=== PATIENT | female | born 1980 | race Caucasian/White ===

== ENCOUNTER 2017-10-20 02:14 | Emergency (ER) | payer OTHER ==
[2017-10-20 02:48] VITALS: BP 127/68; PULSE 72; TEMP 98.4; BMI 28.6
[2017-10-20] MEDS ORDERED: IBUPROFEN 600 MG TABLET (FP) PO ONE (03:30)
--- NOTE | 2017-10-20 03:31 | PDOC ---
History of Present Illness - General Chief Complaint: Head/Neck problem Stated Complaint: NECK PAIN,CHEST PAIN Time Seen by Provider: 10/20/17 02:28 History Source: Patient Past History - Past Medical History Allergies/Adverse Reactions: Allergies Allergy/AdvReac Type Severity Reaction Status Date / Time No Known Allergies Allergy Verified 10/20/17 02:46 Home Medications: Ambulatory Orders Cyclobenzaprine HCl [Flexeril -] 10 mg PO TID PRN #10 tablet 02/20/16 Sertraline HCl 25 mg PO DAILY 02/20/16 Asthma: No Cancer: No Cardiac Disorders: No Diabetes: No HTN: No Hypercholesterolemia: Yes Seizures: No Thyroid Disease: No - Immunization History Immunization Up to Date: Yes - Suicide/Smoking/Psychosocial Hx Smoking History: Never smoked Have you smoked in the past 12 months: No Information on smoking cessation initiated: No Hx Alcohol Use: No Drug/Substance Use Hx: No Substance Use Type: None Hx Substance Use Treatment: No *Physical Exam - Vital Signs Last Vital Signs Temp Pulse Resp BP Pulse Ox 98.4 F 72 19 127/68 98 10/20/17 02:41 10/20/17 02:41 10/20/17 02:41 10/20/17 02:41 10/20/17 02:41 *DC/Admit/Observation/Transfer Diagnosis at time of Disposition: Sternomastoid muscle strain Qualifiers: Encounter type: initial encounter Qualified Code(s): S16.1XXA - Strain of muscle, fascia and tendon at neck level, initial encounter - Discharge Dispostion Condition at time of disposition: Fair Decision to Admit order: No - Referrals Referrals: Brie Abebe MD [Primary Care Provider] - - Patient Instructions Printed Discharge Instructions: DI for Cervical Muscle Strain Additional Instructions: Rest, Motrin every 6 hours as needed for pain Follow-up with the orthopedic surgeon listed on your discharge Return back to the ER for severe/persistent or worsening symptoms - Post Discharge Activity
== END 2017-10-20 04:00 | disposition home or self-care (01) ==
LOC: JER 02:14
DX: S16.1XXA Strain of muscle, fascia and tendon at neck level, initial encounter (principal); X58.XXXA Exposure to other specified factors, initial encounter; Y93.89 Activity, other specified; Y92.9 Unspecified place or not applicable; E78.00 Pure hypercholesterolemia, unspecified
CPT/HCPCS: 99281-25

== ENCOUNTER 2018-04-13 10:46 | Emergency (ER) | payer OTHER ==
[2018-04-13 10:51] VITALS: TEMP 97.7; BMI 29.1
--- NOTE | 2018-04-13 11:26 | PDOC ---
History of Present Illness - General Chief Complaint: Back Pain Stated Complaint: LOWER BACK PAIN Time Seen by Provider: 04/13/18 11:25 - History of Present Illness Initial Comments: 04/13/18 11:33 Ms. Pinto is a 37 yo female w/ no significant pmh who presents for evaluation of 1 month history of worsening back pain. Patient reports it has been bilateral in her lower back and that over the past week she has had additional left lower quadrant abdominal pain. Patient reports pain is constant and exacerbated by flexing her legs, has tried over the counter motrin as well as chiropractic and massage treatment with no relief. Was scheduled outpatient for an abdominal US however was unable to perform it due to insurance reasons. The patient denies chest pain, shortness of breath, headache and dizziness. Denies fever, chills, nausea, vomit, diarrhea and constipation. Denies dysuria, frequency, urgency and hematuria. Past History - Past Medical History Allergies/Adverse Reactions: Allergies Allergy/AdvReac Type Severity Reaction Status Date / Time No Known Allergies Allergy Verified 04/13/18 10:51 Home Medications: Ambulatory Orders Cyclobenzaprine HCl [Flexeril -] 10 mg PO TID PRN #10 tablet 02/20/16 Sertraline HCl 25 mg PO DAILY 02/20/16 Asthma: No Cancer: No Cardiac Disorders: No COPD: No Diabetes: No HTN: No Hypercholesterolemia: Yes Seizures: No Thyroid Disease: No - Immunization History Immunization Up to Date: Yes - Suicide/Smoking/Psychosocial Hx Smoking History: Never smoked Have you smoked in the past 12 months: No Hx Alcohol Use: No Drug/Substance Use Hx: No Substance Use Type: None Hx Substance Use Treatment: No Review of Systems - Review of Systems Comments:: 04/13/18 11:42 GENERAL/CONSTITUTIONAL: No fever or chills. No weakness. HEAD, EYES, EARS, NOSE AND THROAT: No change in vision. No ear pain or discharge. No sore throat. CARDIOVASCULAR: No chest pain or shortness of breath RESPIRATORY: No cough, wheezing, or hemoptysis. GASTROINTESTINAL: +DARINEL lower back pain w/ LLQ abdominal pain. Constant, non- radiating. No nausea, vomiting, diarrhea or constipation. GENITOURINARY: No dysuria, frequency, or change in urination. MUSCULOSKELETAL: No joint or muscle swelling or pain. No neck or back pain. SKIN: No rash NEUROLOGIC: No headache, vertigo, loss of consciousness, or change in strength/ sensation. ENDOCRINE: No increased thirst. No abnormal weight change HEMATOLOGIC/LYMPHATIC: No anemia, easy bleeding, or history of blood clots. ALLERGIC/IMMUNOLOGIC: No hives or skin allergy. *Physical Exam - Vital Signs Last Vital Signs Temp Pulse Resp BP Pulse Ox 97.7 F 101 H 20 119/81 99 04/13/18 10:46 04/13/18 10:46 04/13/18 10:46 04/13/18 10:46 04/13/18 10:46 - Physical Exam Comments: 04/13/18 11:43 GENERAL: Awake, alert, and fully oriented, in no acute distress HEAD: No signs of trauma, normocephalic, atraumatic EYES: PERRLA, EOMI, sclera anicteric, conjunctiva clear ENT: Auricles normal inspection, hearing grossly normal, nares patent, oropharynx clear without exudates. Moist mucosa NECK: Normal ROM, supple, no lymphadenopathy, JVD, or masses LUNGS: No distress, speaks full sentences, clear to auscultation bilaterally HEART: Regular rate and rhythm, normal S1 and S2, no murmurs, rubs or gallops, peripheral pulses normal and equal bilaterally. ABDOMEN: +LLQ TTP. No spinal TTP. Minor DARINEL lower back tenderness. Soft, normoactive bowel sounds. No guarding, no rebound. No masses EXTREMITIES: Normal inspection, Normal range of motion, no edema. No clubbing or cyanosis. NEUROLOGICAL: Cranial nerves II through XII grossly intact. Normal speech, normal gait, no focal sensorimotor deficits SKIN: Warm, Dry, normal turgor, no rashes or lesions noted. Moderate Sedation - Procedure Monitoring Vital Signs: Procedure Monitoring Vital Signs Temperature 97.7 F 04/13/18 10:46 Pulse Rate 101 H 04/13/18 10:46 Respiratory Rate 20 04/13/18 10:46 Blood Pressure 119/81 04/13/18 10:46 O2 Sat by Pulse Oximetry (%) 99 04/13/18 10:46 ED Treatment Course - LABORATORY CBC & Chemistry Diagram: 04/13/18 12:11 04/13/18 12:11 Medical Decision Making - Medical Decision Making 04/13/18 15:26 Ms. Pinto is a 37 yo female w/ pmh as described who presents for evaluation of 1 month history of chronic non-specific back pain w/ abdominal complication. Patient evaluated with labs as below and CT abdomen/pelvis. Labs grossly wnl. CT abdomen/pelvis negative for acute pathology. No concern for acute process at this time. Discharging to home. Laboratory Results - last 24 hr 04/13/18 04/13/18 04/13/18 12:11 12:11 12:11 WBC 7.1 RBC 4.76 Hgb 14.2 Hct 41.3 MCV 86.8 MCH 29.7 MCHC 34.3 RDW 13.3 D Plt Count 289 MPV 8.4 Absolute Neuts (auto) 3.9 Neutrophils % 55.8 Lymphocytes % 35.1 D Monocytes % 7.9 Eosinophils % 0.6 Basophils % 0.6 Nucleated RBC % 0 Sodium 138 Potassium 4.1 Chloride 105 Carbon Dioxide 26 Anion Gap 6 L BUN 17 Creatinine 0.7 Creat Clearance w eGFR > 60 Random Glucose 92 Calcium 9.0 Total Bilirubin 0.7 AST 19 ALT 32 Alkaline Phosphatase 80 Total Protein 8.0 Albumin 4.2 Urine Color Ltyellow Urine Appearance Clear Urine pH 6.0 Ur Specific [place] 1.011 Urine Protein Negative Urine Glucose (UA) Negative Urine Ketones Negative Urine Blood Negative Urine Nitrite Negative Urine Bilirubin Negative Urine Urobilinogen Negative Ur Leukocyte Esterase Trace Urine WBC (Auto) 7 Urine RBC (Auto) 2 Ur Epithelial Cells Rare Urine Mucus Rare Urine HCG, Qual Negative *DC/Admit/Observation/Transfer Diagnosis at time of Disposition: Abdominal pain Qualifiers: Abdominal location: unspecified location Qualified Code(s): R10.9 - Unspecified abdominal pain - Discharge Dispostion Disposition: HOME - Referrals Referrals: Thomas Thompson MD [Primary Care Provider] - - Patient Instructions Printed Discharge Instructions: DI for Abdominal Pain-Adult, DI for Low Back Pain Additional Instructions: You were evaluated today in the ER for your abdominal pain. We performed laboratory evaluation as well as performed a CT abdomen and pelvis. No concerning findings were found at this time. You may take over the counter motrin or tylenol per package instructions for pain control. Follow-up with primary care provider later this week for further evaluation. Return to ER if any fever, chills, increase in pain, or other concerning symptoms. - Post Discharge Activity
--- NOTE | 2018-04-13 11:30 | PDOC ---
Attending Attestation - HPI HPI: 04/13/18 11:40 The patient is a 37 year old female with no significant PMH who presents to the emergency department with worsening bilateral lower back pain and left lower quadrant pain for the past week. Patient states she tried motrin at home, has massages and went to a chiropractor with no relief of her lower back pain. Patient states she had her left lower quadrant pain evaluated by her PCP and was told to get an outpatient abdominal ultrasound, but did not have it done because it was not covered by her insurance. Last menstrual cycle was in January. The patient denies chest pain, shortness of breath, headache and dizziness. Denies fever, chills, nausea, vomit, diarrhea and constipation. Denies dysuria, frequency, urgency and hematuria. Allergies: NKA Past surgical history: None reported. Social history: No reported alcohol, drug or cigarette use. PCP: Dr. Thompson - Physicial Exam PE: 04/13/18 11:49 ADULT PHYSICAL EXAM Constitutional: Awake, alert, oriented. No acute distress. Cardiovascular: Regular rate. Regular rhythm. S1, S2 regular. Distal pulses are 2+ and symmetric. Pulmonary/Chest: No evidence of respiratory distress. Clear to auscultation bilaterally No wheezing, rales or rhonchi. Abdominal: Soft and non-distended. (+) Left lower quadrant tenderness. No rebound, guarding or rigidity. No organomegaly. No palpable masses. Good bowel sounds. Back: No CVA tenderness. No C,T, or L tenderness. (+) Left pelvic tenderness. Musculoskeletal: No edema. No cyanosis. No clubbing. Full range of motion in all extremities. Nocalf tenderness. Radial/pedal pulses are intact and 2+ bilaterally Skin: Skin is warm and dry. No petechiae. No purpura. Neurological: Alert and oriented to person, place, and time. Cranial nerves II -XII are grossly intact. Psychiatric: Good eye contact. Normal interaction, affect and behavior. <Michelle Mary - Last Filed: 04/13/18 12:15> - Resident Resident Name: Onesimo Thorne - ED Attending Attestation I have performed the following: I have examined & evaluated the patient, The case was reviewed & discussed with the resident, I agree w/resident's findings & plan, Exceptions are as noted - Medical Decision Making 04/13/18 11:30 I, Dr. Elena Davis, DO, attest that this document has been prepared under my direction and personally reviewed by me in its entirety. I further attest, that it accurately reflects all work, treatment, procedures and medical decision -making performed by me. 04/13/18 12:11 a/p: 37yo female with low back pain x weeks now with LLQ pain -last menstrual cycle January -concern for preg (though hx of tubal ligation) vs lumbar sprain/strain vs lbp vs pelvic mass vs cyst -will send labs, ua, ucg -will obtain ct abd/pelvis without contrast if upreg negative -tylenol for pain -will monitor and reassess 04/13/18 15:39 ct does not show acute intraabd pathology or bony pathology pt feeling better needs to follow up with her PMD as an outpt stable for dc to home <Elena Davis - Last Filed: 04/13/18 15:40>
[2018-04-13] MEDS ORDERED: SODIUM CHLORIDE 1,000 ML IV STA (11:44)
[2018-04-13] MEDS ORDERED: ACETAMINOPHEN 1000 MG/100 ML VIAL (NON FORMULARY) IVPB ONE (12:19)
[2018-04-13] MEDS ORDERED: ACETAMINOPHEN INJECTION 100 ML IVPB ONE (12:21)
[2018-04-13 12:36] LABS: BASO % 0.6 % (0-2.0); EOS % 0.6 % (0-4.5); HEMATOCRIT 41.3 % (32.4-45.2); HEMOGLOBIN 14.2 GM/dL (10.7-15.3); LYMPH % 35.1 % (8-40); MCH 29.7 pg (25.7-33.7); MCHC 34.3 g/dl (32.0-36.0); MEAN CELL VOLUME 86.8 fl (80-96); MEAN PLT VOLUME 8.4 fl (7.5-11.1); MONO % 7.9 % (3.8-10.2); NEUT % 55.8 % (42.8-82.8); PLATELET COUNT 289 K/MM3 (134-434); RBC 4.76 M/mm3 (3.60-5.2); RDW 13.3 % (11.6-15.6); WHITE BLOOD COUNT 7.1 K/mm3 (4.0-10.0)
[2018-04-13 12:38] LABS: HCG,QUALITATIVE URINE Negative
[2018-04-13 12:41] LABS: ALBUMIN 4.2 g/dl (3.4-5.0); ALK PHOS 80 U/L (45-117); ANION GAP 6 MMOL/L (8-16); BILIRUBIN,TOTAL 0.7 mg/dL (0.2-1); BLOOD UREA NITROGEN 17 mg/dL (7-18); CHLORIDE 105 mmol/L (98-107); CO2 26 mmol/L (21-32); CREATININE 0.7 mg/dL (0.55-1.3); GLUCOSE,RANDOM 92 mg/dL (74-106); POTASSIUM 4.1 mmol/L (3.5-5.1); SGOT/AST 19 U/L (15-37); SGPT/ALT 32 U/L (13-61); SODIUM 138 mmol/L (136-145)
[2018-04-13 12:43] LABS: URINE APPEARANCE CLEAR; URINE BILIRUBIN NEGATIVE (<2.0 mg/dL); URINE COLOR LTYELLOW; URINE GLUCOSE (UA) NEGATIVE (NEGATIVE); URINE KETONE NEGATIVE (NEGATIVE); URINE LEUK ESTERASE TRACE (NEGATIVE); URINE NITRITE NEGATIVE (NEGATIVE); URINE PROTEIN NEGATIVE (NEGATIVE); URINE UROBILINOGEN NEGATIVE mg/dL (0.2-1.0)
[2018-04-13 12:55] LABS: EPI CELLS RARE /HPF (FEW); URINE MUCUS RARE
[2018-04-13 15:52] VITALS: BP 116/69; PULSE 75
== END 2018-04-13 15:52 | disposition home or self-care (01) ==
LOC: JER 10:46
PROC: 3E033NZ Introduction of Analgesics, Hypnotics, Sedatives into Peripheral Vein, Percutaneous Approach (ICD-10-PCS; principal; 2018-04-13)
PROC: 3E0337Z Introduction of Electrolytic and Water Balance Substance into Peripheral Vein, Percutaneous Approach (ICD-10-PCS; 2018-04-13)
DX: R10.9 Unspecified abdominal pain (principal); E78.00 Pure hypercholesterolemia, unspecified
CPT/HCPCS: 36415; 74176-TC; 80053; 81003; 81015; 84703; 85025; 87086; 96361; 96374; 99281-25; J0131; J7030

== ENCOUNTER 2019-03-16 13:08 | Emergency (ER) | payer OTHER ==
--- NOTE | 2019-03-16 13:27 | PDOC ---
Rapid Medical Evaluation Medical Evaluation: Allergies Allergy/AdvReac Type Severity Reaction Status Date / Time No Known Allergies Allergy Verified 04/13/18 10:51 I have performed a brief in-person evaluation of this patient. The patient presents with a chief complaint of: this AM, felt eye burning sensation, then later with nausea, SOB and chest heaviness; denies smoking; denies URI sxs Pertinent physical exam findings: In NAD, lungs clear I have ordered the following: labs, ekg, cxr The patient will proceed to the ED for further evaluation. 03/16/19 13:23
[2019-03-16 13:28] VITALS: BP 142/68; PULSE 90; TEMP 98; BMI 22.4
[2019-03-16 15:28] LABS: BASO % 1.1 % (0-2.0); EOS % 0.5 % (0-4.5); HEMATOCRIT 38.3 % (32.4-45.2); HEMOGLOBIN 12.7 GM/dL (10.7-15.3); LYMPH % 29.2 % (8-40); MCH 29.1 pg (25.7-33.7); MCHC 33.2 g/dl (32.0-36.0); MEAN CELL VOLUME 87.9 fl (80-96); MEAN PLT VOLUME 7.8 fl (7.5-11.1); MONO % 4.6 % (3.8-10.2); NEUT % 64.6 % (42.8-82.8); PLATELET COUNT 282 K/MM3 (134-434); RBC 4.35 M/mm3 (3.60-5.2); RDW 13.3 % (11.6-15.6)
--- NOTE | 2019-03-16 15:30 | PDOC ---
History of Present Illness - General Chief Complaint: Headache Stated Complaint: HEADACHE/CONGESTED/DIZZNESS Time Seen by Provider: 03/16/19 13:22 History Source: Patient Exam Limitations: No Limitations Past History - Travel Traveled outside of the country in the last 30 days: No Close contact w/someone who was outside of country & ill: No - Past Medical History Allergies/Adverse Reactions: Allergies Allergy/AdvReac Type Severity Reaction Status Date / Time No Known Allergies Allergy Verified 03/16/19 13:28 Home Medications: Ambulatory Orders Cyclobenzaprine HCl [Flexeril -] 10 mg PO TID PRN #10 tablet 02/20/16 Sertraline HCl 25 mg PO DAILY 02/20/16 Ibuprofen 600 mg PO Q6H #30 tablet 03/16/19 Asthma: No Cancer: No Cardiac Disorders: No COPD: No Diabetes: No HTN: No Hypercholesterolemia: Yes Seizures: No Thyroid Disease: No - Immunization History Immunization Up to Date: Yes - Psycho Social/Smoking Cessation Hx Smoking History: Never smoked Have you smoked in the past 12 months: No Hx Alcohol Use: Yes Drug/Substance Use Hx: No Substance Use Type: None Hx Substance Use Treatment: No Review of Systems - Review of Systems Able to Perform ROS?: Yes Comments:: 03/16/19 17:03 CONSTITUTIONAL: Absent: fever, chills, diaphoresis, generalized weakness, malaise, loss of appetite HEENT: Absent: rhinorrhea, nasal congestion, throat pain, throat swelling, difficulty swallowing, mouth swelling, ear pain, eye pain, visual Changes CARDIOVASCULAR: Present: Chest pressure absent: loss of consciousness, palpitations, irregular heart rate, peripheral edema RESPIRATORY: Absent: cough, shortness of breath, dyspnea with exertion, orthopnea, wheezing, stridor, hemoptysis MUSCULOSKELETAL: Absent: myalgia, arthralgia, joint swelling SKIN: Absent: rash, itching, pallor NEUROLOGIC: Present: Headache absent: focal weakness or paresthesias, dizziness, unsteady gait, seizure, mental status changes, bladder or bowel incontinence PSYCHIATRIC: Absent: anxiety, depression, suicidal or homicidal ideation, hallucinations. Is the patient limited Kinyarwanda proficient: No *Physical Exam - Vital Signs Last Vital Signs Temp Pulse Resp BP Pulse Ox 98.0 F 90 16 142/68 100 03/16/19 13:23 03/16/19 13:23 03/16/19 13:23 03/16/19 13:23 03/16/19 13:23 - Physical Exam 03/16/19 17:03 GENERAL: Well developed, well nourished. Awake and alert. No acute distress. HEENT: Normocephalic, atraumatic. PERRLA, EOMI. No conjunctival pallor. Sclera are non- icteric. Moist mucous membranes. Oropharynx is clear. NECK: Supple. Full ROM. No lymphadenopathy. CARDIOVASCULAR: Regular rate and rhythm. No murmurs, rubs, or gallops. Distal pulses are 2+ and symmetric. PULMONARY: No evidence of respiratory distress. Lungs clear to auscultation bilaterally. No wheezing, rales or rhonchi. ABDOMINAL: Soft. Non-tender. Non-distended. No rebound or guarding. No organomegaly. Normoactive bowel sounds. MUSCULOSKELETAL Normal range of motion at all joints. No bony deformities or tenderness. No CVA tenderness. EXTREMITIES: No cyanosis. No clubbing. No edema. No calf tenderness. SKIN: Warm and dry. Normal capillary refill. No rashes. No jaundice. NEUROLOGICAL: Alert, awake, appropriate. Cranial nerves 2-12 intact. No deficits to light touch and temperature in face, upper extremities and lower extremities. No motor deficits in the in face, upper extremities and lower extremities. Normoreflexic in the upper and lower extremities. Normal speech. Toes are down- going bilaterally. Gait is normal without ataxia. PSYCHIATRIC: Cooperative. Good eye contact. Appropriate mood and affect. ED Treatment Course - LABORATORY CBC & Chemistry Diagram: 03/16/19 15:13 03/16/19 15:13 Medical Decision Making - Medical Decision Making 03/16/19 17:05 Patient is a 38-year-old female with past medical history of hyper lipidemia, presents to the ER with headache and chest pressure starting at 11 AM this morning. She states that the pain is behind her eyes. She also admits that she has some chest pressure which started at 11 AM. It hurts more when she takes a deep breath. She also states she felt febrile yesterday. Denies visual changes, lightheadedness, dizziness, palpitations, nausea, vomiting or diarrhea. A/P: Migraine On exam patient is neurologically intact with no focal deficits. Reproducible chest pain with sternal pressure. EKG: Rate 80 bpm, normal sinus rhythm. Normal intervals and axis. No acute ST- T wave changes. Troponin negative Lab work unremarkable, flu negative. Migraine cocktail given with relief of symptoms. Likely a sinus migraine variant Discharge home with primary care follow-up I discussed the physical exam findings, ancillary test results and final diagnoses with the patient. I answered all of the patient's questions. The patient was satisfied with the care received and felt comfortable with the discharge plan and treatment plan. The Patient agrees to follow up with the primary care physician/specialist within 24-72 hours. Return precautions were given. Discharge - Discharge Information Problems reviewed: Yes Clinical Impression/Diagnosis: Headache Qualifiers: Headache type: unspecified Headache chronicity pattern: acute headache Intractability: not intractable Qualified Code(s): R51 - Headache Condition: Stable Disposition: HOME - Admission No - Follow up/Referral Referrals: Thomas Thompson MD [Primary Care Provider] - - Patient Discharge Instructions Patient Printed Discharge Instructions: DI for Migraine Additional Instructions: You were evaluated for your headache and chest pain today. Your EKG and blood work was normal. Your headache was relieved with medications for migraines. Please follow-up with your primary care doctor for further management of your symptoms. Please take Motrin 600 mg every 6 hours as needed for pain. Return to the ER for worsening headache, worsening chest pain, difficulty breathing or if you have any changes in your symptoms. - Post Discharge Activity Work/Back to School Note: Back to Work
[2019-03-16] MEDS ORDERED: METOCLOPRAMIDE HCL INJECTION 10 MG/2 ML VIAL IVPB ONE (15:31)
[2019-03-16] MEDS ORDERED: ACETAMINOPHEN 1000 MG/100 ML VIAL (NON FORMULARY) IVPB ONE (15:31)
[2019-03-16] MEDS ORDERED: METOCLOPRAMIDE HCL INJECTION 10 MG/2 ML VIAL ONE (16:04)
[2019-03-16] MEDS ORDERED: ACETAMINOPHEN INJECTION 100 ML IVPB ONE (16:09)
[2019-03-16 16:10] LABS: ALBUMIN 3.8 g/dl (3.4-5.0); BILIRUBIN,TOTAL 0.4 mg/dL (0.2-1); CALCIUM 8.6 mg/dL (8.5-10.1); CREATININE 0.7 mg/dL (0.55-1.3); POTASSIUM 3.7 mmol/L (3.5-5.1); TOT PROT 7.6 g/dl (6.4-8.2)
--- NOTE | 2019-03-17 12:58 | EKG ---
Test Reason : Blood Pressure : / mmHG Vent. Rate : 080 BPM Atrial Rate : 080 BPM P-R Int : 130 ms QRS Dur : 070 ms QT Int : 360 ms P-R-T Axes : 037 043 027 degrees QTc Int : 415 ms NORMAL SINUS RHYTHM NORMAL ECG WHEN COMPARED WITH ECG OF 24-MAY-2015 19:56, NO SIGNIFICANT CHANGE WAS FOUND Confirmed by MD Claros Daniel ([id number]) on 03/17/2019 12:58:44 PM Referred By: Confirmed By:David Claros MD
== END 2019-03-16 17:25 | disposition home or self-care (01) ==
LOC: JERFT 13:08
PROC: 3E033NZ Introduction of Analgesics, Hypnotics, Sedatives into Peripheral Vein, Percutaneous Approach (ICD-10-PCS; principal; 2019-03-16)
PROC: 3E033GC Introduction of Other Therapeutic Substance into Peripheral Vein, Percutaneous Approach (ICD-10-PCS; 2019-03-16)
PROC: 3E033GC Introduction of Other Therapeutic Substance into Peripheral Vein, Percutaneous Approach (ICD-10-PCS; 2019-03-16)
DX: G43.909 Migraine, unspecified, not intractable, without status migrainosus (principal)
CPT/HCPCS: 36415; 71046-TC-FY; 80053; 84484; 85025; 87804; 93005; 93010; 96374; 96375; 99283-25; J0131

== ENCOUNTER 2019-11-12 06:03 | Emergency (ER) | payer OTHER ==
[2019-11-12 06:33] VITALS: BMI 27.8
--- NOTE | 2019-11-12 07:23 | PDOC ---
Attending Attestation - Resident Resident Name: Daryl Stinson - HPI HPI: 11/12/19 09:11 PT presents to the ED complaining of RUQ pain after eating, without nausea, vomiting or fever that began last night. Pain was moderate in severity, but was persistent, so patient presented to the ED. - Physicial Exam PE: 11/12/19 09:13 Agree with resident exam. PAteint is alert and oriented and in no acute distress. Abdomen is soft, non tender, non distended, without guarding or rebound. - Medical Decision Making 11/12/19 09:14 PT presents to the ED complaining of RUQ abdominal pain. Differential includes cholelithiasis, cholecystitis, pancreatitis. Will check labs and US and reassess. Discharge - Discharge Information Problems reviewed: Yes Clinical Impression/Diagnosis: Abdominal pain Condition: Fair Disposition: HOME - Follow up/Referral - Patient Discharge Instructions Patient Printed Discharge Instructions: DI for Gallstones Additional Instructions: Gallstones are stones in the gallbladder that can block the gallbladder from draining bile. Please call your doctor if you develop severe stomach pain. This pain is usually located on the right side under your rib cage. This pain can radiate to the back or right shoulder. You can also develop nausea & vomiting. Rare complications that can occur include infections, gallbladder tears, and pancreas inflammation. You can help prevent gallstone formation by keeping a healthy weight - overweight people are more likely to get gallstones. However, losing weight too quickly can lead to gallstone formation so speak with your doctor before starting any dietary regimen. RETURN TO THE ER: if you have fevers, chills, nausea and vomiting or if pain is persistent. - Post Discharge Activity
[2019-11-12] MEDS ORDERED: ONDANSETRON 4 MG/2 ML VIAL IVPUSH ONE (07:38)
[2019-11-12] MEDS ORDERED: ACETAMINOPHEN 1000 MG/100 ML VIAL (NON FORMULARY) IVPB ONE (07:38)
[2019-11-12] MEDS ORDERED: SODIUM CHLORIDE 0.9% 500 ML INFUS.BAG IV ONE (07:38)
[2019-11-12] MEDS ORDERED: ACETAMINOPHEN INJECTION 100 ML IVPB ONE (07:46)
--- NOTE | 2019-11-12 07:52 | PDOC ---
History of Present Illness - General Chief Complaint: Pain, Acute Stated Complaint: PAIN Time Seen by Provider: 11/12/19 07:18 - History of Present Illness Initial Comments: 11/12/19 07:44 HPI 39 y/o F hx of HLD, presents to the ED with RUQ pain since last night. Pt reports pain started approx 2 hours after she ate some bread. Pain ins intermittent 8/10 pressure like pain radiating round to her back. Pain is exacerbated by movement. subsides if she keeps still. She endorses nausea with no vomiting. She denies any chest pain, shortness of breath, fevers, chills, constipation, diarrhea, dysuria, hematuria. Patient denies SERNA, vision change, palpitations, cough, wheezing, orthopena, PND, leg swelling/pain, N/V, F,C, CP, SOB, urinary complaints, hematuria, BPR, abdominal pain, diarrhea, constipation, lightheadedness, weakness, sensory changes. PMHx: as noted above ROS: as noted SHx: denies drug/alcohol use. Drinks a glass of wine occasionally. Allergies: NKDA Surg: tubal ligation ROS: GENERAL/CONSTITUTIONAL: No fever or chills. No weakness. HEAD, EYES, EARS, NOSE AND THROAT: No change in vision. No ear pain or discharge. No sore throat. CARDIOVASCULAR: No chest pain or shortness of breath RESPIRATORY: No cough, wheezing, or hemoptysis. GASTROINTESTINAL: +nausea. no vomiting, diarrhea or constipation. GENITOURINARY: No dysuria, frequency, or change in urination. MUSCULOSKELETAL: No joint or muscle swelling or pain. No neck or back pain. SKIN: No rash NEUROLOGIC: No headache, vertigo, loss of consciousness, or change in strength/sensation. ENDOCRINE: No increased thirst. No abnormal weight change HEMATOLOGIC/LYMPHATIC: No anemia, easy bleeding, or history of blood clots. ALLERGIC/IMMUNOLOGIC: No hives or skin allergy. PE: GENERAL: Awake, alert, and fully oriented, in no acute distress HEAD: No signs of trauma, normocephalic, atraumatic EYES: PERRLA, EOMI, sclera anicteric, conjunctiva clear ENT: Auricles normal inspection, hearing grossly normal, nares patent, oropharynx clear without exudates. Moist mucosa NECK: Normal ROM, supple, no lymphadenopathy, JVD, or masses LUNGS: No distress, speaks full sentences, clear to auscultation bilaterally HEART: Regular rate and rhythm, normal S1 and S2, no murmurs, rubs or gallops, peripheral pulses normal and equal bilaterally. ABDOMEN: Soft, ttp epigastric/RUQ. No guarding, no rebound. No masses, no CVA tenderness EXTREMITIES : Normal inspection, Normal range of motion, no edema. No clubbing or cyanosis NEUROLOGICAL: Cranial nerves II through XII grossly intact. Normal speech, normal gait, no focal sensorimotor deficits SKIN: Warm, Dry, normal turgor, no rashes or lesions noted MDM DDx including but not limited to: cholecystitis, cholelithiasis, acs, pancreatitis. Workup: labs, IVF, EKG, CXR TX: zofran, tylenol. Scores - HEART score - EKG: normal sinus rhythm, HR 63bpm, WI 130ms, QRS 78ms, QTc 419ms ED course labs unremarkable CXR: no acute pathology pt feeling better after tylenol and zofran meds: Re-assessment: 11/12/19 07:47 11/12/19 09:27 11/12/19 09:52 Past History - Medical History Allergies/Adverse Reactions: Allergies Allergy/AdvReac Type Severity Reaction Status Date / Time No Known Allergies Allergy Verified 11/12/19 06:33 Asthma: No Cancer: No Cardiac Disorders: No COPD: No Diabetes: No HTN: No Hypercholesterolemia: Yes Seizures: No Thyroid Disease: No - Reproductive History Is Patient Now?: No - Immunization History Immunization Up to Date: Yes - Psycho-Social/Smoking History Smoking History: Never smoked Have you smoked in the past 12 months: No Information on smoking cessation initiated: No - Substance Abuse Hx (Audit-C & DAST Scrn) How often the patient has a drink containing alcohol: Never Score: In Men: 4 or > Positive; In Women: 3 or > Positive: 0 Screen Result (Pos requires Nsg. Audit-10AR): Negative In the last yr the pt used illegal drug/Rx for NonMed reason: No Score: Yes response is considered Positive: 0 Screen Result (Positive result requires Nsg. DAST-10): Negative *Physical Exam - Vital Signs Last Vital Signs Temp Pulse Resp BP Pulse Ox 97.8 F 75 18 123/77 95 11/12/19 06:28 11/12/19 06:28 11/12/19 07:43 11/12/19 06:28 11/12/19 07:43 ED Treatment Course - LABORATORY CBC & Chemistry Diagram: 11/12/19 07:55 11/12/19 07:55 - RADIOLOGY Radiology Studies Ordered: Category Date Time Status CHEST PA & LAT [RAD] Stat Radiology 11/12/19 07:42 Ordered GALLBLADDER US [US] Stat Ultrasound 11/12/19 07:38 Ordered Discharge - Discharge Information Problems reviewed: Yes Clinical Impression/Diagnosis: Abdominal pain Condition: Fair - Follow up/Referral - Patient Discharge Instructions Patient Printed Discharge Instructions: DI for Gallstones Additional Instructions: Gallstones are stones in the gallbladder that can block the gallbladder from draining bile. Please call your doctor if you develop severe stomach pain. This pain is usually located on the right side under your rib cage. This pain can radiate to the back or right shoulder. You can also develop nausea & vomiting. Rare complications that can occur include infections, gallbladder tears, and pancreas inflammation. You can help prevent gallstone formation by keeping a healthy weight - overweight people are more likely to get gallstones. However, losing weight too quickly can lead to gallstone formation so speak with your doctor before starting any dietary regimen. RETURN TO THE ER: if you have fevers, chills, nausea and vomiting or if pain is persistent. - Post Discharge Activity
[2019-11-12 08:38] LABS: BASO % 0.5 % (0-2.0); EOS % 0.5 % (0-4.5); HEMATOCRIT 40.1 % (32.4-45.2); HEMOGLOBIN 13.4 GM/dL (10.7-15.3); LYMPH % 25.9 % (8-40); MCH 29.1 pg (25.7-33.7); MCHC 33.5 g/dl (32.0-36.0); MEAN CELL VOLUME 86.8 fl (80-96); MEAN PLT VOLUME 7.9 fl (7.5-11.1); MONO % 6.4 % (3.8-10.2); NEUT % 66.7 % (42.8-82.8); PLATELET COUNT 284 K/MM3 (134-434); RBC 4.62 M/mm3 (3.60-5.2); RDW 12.9 % (11.6-15.6); WHITE BLOOD COUNT 8.3 K/mm3 (4.0-10.0)
[2019-11-12 08:51] LABS: ALBUMIN 4.1 g/dl (3.4-5.0); ALK PHOS 88 U/L (45-117); ANION GAP 6 MMOL/L (8-16); BILIRUBIN,TOTAL 0.6 mg/dL (0.2-1); BLOOD UREA NITROGEN 15.4 mg/dL (7-18); CALCIUM 8.8 mg/dL (8.5-10.1); CHLORIDE 109 mmol/L (98-107); CO2 27 mmol/L (21-32); CREATININE 0.7 mg/dL (0.55-1.3); GLUCOSE,RANDOM 94 mg/dL (74-106); LIPASE 96 U/L (73-393); POTASSIUM 4.2 mmol/L (3.5-5.1); SGOT/AST 19 U/L (15-37); SGPT/ALT 33 U/L (13-61); SODIUM 141 mmol/L (136-145)
[2019-11-12 11:05] VITALS: BP 119/67; PULSE 65; TEMP 98.3
--- NOTE | 2019-11-12 15:28 | EKG ---
Test Reason : Blood Pressure : / mmHG Vent. Rate : 063 BPM Atrial Rate : 063 BPM P-R Int : 130 ms QRS Dur : 078 ms QT Int : 410 ms P-R-T Axes : 047 059 046 degrees QTc Int : 419 ms NORMAL SINUS RHYTHM NORMAL ECG WHEN COMPARED WITH ECG OF 16-MAR-2019 13:30, NO SIGNIFICANT CHANGE WAS FOUND Confirmed by LIANET WOOD MD ([id number]) on 11/12/2019 3:28:24 PM Referred By: Confirmed By:LIANET WOOD MD
== END 2019-11-12 11:34 | disposition home or self-care (01) ==
LOC: JER 06:03
PROC: 3E0333Z Introduction of Anti-inflammatory into Peripheral Vein, Percutaneous Approach (ICD-10-PCS; principal; 2019-11-12)
PROC: 3E033GC Introduction of Other Therapeutic Substance into Peripheral Vein, Percutaneous Approach (ICD-10-PCS; 2019-11-12)
DX: R10.9 Unspecified abdominal pain (principal)
CPT/HCPCS: 36415; 71046-TC-FY; 76705-TC; 80053; 83690; 84484; 84703; 85025; 93005; 93010; 99285-25; J0131

== ENCOUNTER 2020-04-22 23:34 | Emergency (ER) | payer OTHER ==
[2020-04-22 23:41] VITALS: BP 134/81; PULSE 74; TEMP 97.8; BMI 27.6
[2020-04-23] MEDS ORDERED: SODIUM CHLORIDE 0.9% 500 ML INFUS.BAG IV ONE (01:39)
[2020-04-23] MEDS ORDERED: SUMATRIPTAN SUCCINATE 6 MG/0.5 ML VIAL SQ ONE (01:39)
[2020-04-23] MEDS ORDERED: ONDANSETRON 4 MG TABLET PO ONE ×2 (01:39→01:54)
[2020-04-23] MEDS ORDERED: SUMATRIPTAN SUCCINATE 6 MG/0.5 ML VIAL ONE (01:50)
[2020-04-23] MEDS ORDERED: ONDANSETRON 4 MG/2 ML VIAL ONE (01:50)
[2020-04-23 03:53] LABS: EPI CELLS 14 /uL (0-25.1); HYALINE CASTS 1 /uL (0-3.1); PH,URINE 6.5 (5.0-8.0); URINE APPEARANCE CLEAR; URINE BACTERIA 901 /uL (0-1359); URINE BILIRUBIN NEGATIVE (NEGATIVE); URINE COLOR YELLOW; URINE GLUCOSE (UA) NEGATIVE (NEGATIVE); URINE KETONE NEGATIVE (NEGATIVE); URINE LEUK ESTERASE TRACE (NEGATIVE); URINE NITRITE NEGATIVE (NEGATIVE); URINE PROTEIN NEGATIVE (NEGATIVE); URINE RBC 7 /uL (0-23.9); URINE UROBILINOGEN 0.2 mg/dL (0.2-1.0); URINE WBC 34 /uL (0-25.8)
[2020-04-23 03:54] LABS: HCG,QUALITATIVE URINE Negative
== END 2020-04-23 03:36 | disposition home or self-care (01) ==
LOC: JER 23:34
PROC: 3E023GC Introduction of Other Therapeutic Substance into Muscle, Percutaneous Approach (ICD-10-PCS; principal; 2020-04-23)
DX: R51.9 Headache, unspecified (principal)
CPT/HCPCS: 81003; 84703; 99284-25

== ENCOUNTER 2022-06-03 16:10 | Emergency (ER) | payer OTHER ==
[2022-06-03 16:42] VITALS: RESP 18; TEMP 98; BMI 32.2
[2022-06-03 16:57] VITALS: BP 127/81; PULSE 80
[2022-06-03] MEDS ORDERED: FAMOTIDINE 10 MG TABLET PO ONE (17:34)
[2022-06-03] MEDS ORDERED: FAMOTIDINE 20 MG TABLET ONE (17:39)
== END 2022-06-03 17:54 | disposition home or self-care (01) ==
LOC: JERFT 16:10
DX: R22.0 Localized swelling, mass and lump, head (principal)
CPT/HCPCS: 99283-25

== ENCOUNTER 2022-10-22 15:13 | Emergency (ER) | payer OTHER ==
[2022-10-22 15:19] VITALS: RESP 17; BMI 29.9
[2022-10-22] MEDS ORDERED: SODIUM CHLORIDE 0.9% 1000 ML INFUS.BAG IV ONE (16:27)
[2022-10-22] MEDS ORDERED: MECLIZINE HCL 25 MG TABLET (FP) PO ONE (16:49)
[2022-10-22] MEDS ORDERED: MECLIZINE HCL 25 MG TABLET (FP) ONE (16:55)
[2022-10-22 17:05] LABS: BASO % 0.2 % (0-2.0); EOS % 0.2 % (0-4.5); HEMATOCRIT 39.4 % (32.4-45.2); HEMOGLOBIN 13.3 GM/dL (10.7-15.3); LYMPH % 21.7 % (8-40); MCH 28.8 pg (25.7-33.7); MCHC 33.8 g/dl (32.0-36.0); MEAN PLT VOLUME 7.7 fl (7.5-11.1); MONO % 5.2 % (3.8-10.2); NEUT % 72.7 % (42.8-82.8); PLATELET COUNT 302 10^3/uL (134-434); RBC 4.64 M/mm3 (3.60-5.2); RDW 13.7 % (11.6-15.6); WHITE BLOOD COUNT 7.5 K/mm3 (4.0-10.0)
[2022-10-22 17:30] LABS: HCG,QUALITATIVE URINE Negative
[2022-10-22 17:39] LABS: POTASSIUM 3.6 mmol/L (3.5-5.1)
[2022-10-22 17:41] LABS: CALCIUM 8.8 mg/dL (8.5-10.1)
[2022-10-22 17:41] LABS: URINE APPEARANCE CLEAR; URINE BILIRUBIN NEGATIVE (NEGATIVE); URINE COLOR YELLOW; URINE GLUCOSE (UA) NEGATIVE (NEGATIVE); URINE KETONE TRACE (NEGATIVE); URINE LEUK ESTERASE NEGATIVE (NEGATIVE); URINE NITRITE NEGATIVE (NEGATIVE); URINE PROTEIN NEGATIVE (NEGATIVE); URINE UROBILINOGEN 0.2 mg/dL (0.2-1.0)
[2022-10-22 17:42] LABS: ALBUMIN 4.3 g/dl (3.4-5.0); BLOOD UREA NITROGEN 16.4 mg/dL (7-18)
[2022-10-22 17:43] LABS: EPI CELLS 14 /uL (0-25.1); HYALINE CASTS 0 /uL (0-3.1); URINE BACTERIA 105 /uL (0-1359); URINE RBC 23 /uL (0-23.9); URINE WBC 7 /uL (0-25.8)
[2022-10-22 17:45] LABS: CREATININE 0.7 mg/dL (0.55-1.3)
[2022-10-22 17:46] LABS: BILIRUBIN,TOTAL 0.6 mg/dL (0.2-1); TOT PROT 7.9 g/dl (6.4-8.2)
[2022-10-22] MEDS ORDERED: KETOROLAC TROMETHAMINE 15 MG/ML VIAL ONE (19:11)
[2022-10-22 19:19] VITALS: BP 155/80; PULSE 99; TEMP 98.2
[2022-10-22] MEDS ORDERED: methylPREDNISolone NA SUCC 125 MG/2 ML VIAL ONE (19:20)
[2022-10-22] MEDS ORDERED: methylPREDNISolone NA SUCC 125 MG/2 ML VIAL IVPB ONE (19:32)
[2022-10-22] MEDS ORDERED: KETOROLAC TROMETHAMINE 30 MG/1 ML VIAL IVPUSH ONE (19:36)
== END 2022-10-22 22:22 | disposition home or self-care (01) ==
LOC: JER 15:13
PROC: 3E033NZ Introduction of Analgesics, Hypnotics, Sedatives into Peripheral Vein, Percutaneous Approach (ICD-10-PCS; principal; 2022-10-22)
PROC: 3E033GC Introduction of Other Therapeutic Substance into Peripheral Vein, Percutaneous Approach (ICD-10-PCS; 2022-10-22)
DX: G43.009 Migraine without aura, not intractable, without status migrainosus (principal); R00.2 Palpitations; R42 Dizziness and giddiness; R53.83 Other fatigue
CPT/HCPCS: 36415; 70450-TC; 70496-TC; 80053; 81003; 84703; 85025; 93005; 93010; 99285-25; Q9967